=== PATIENT | female | born 1935 | race Caucasian/White ===

== ENCOUNTER 2022-01-03 16:22 | Emergency (ER) | payer OTHER ==
[2022-01-03 16:30] VITALS: BP 152/76; PULSE 83; RESP 18; TEMP 98.7; BMI 30.1
[2022-01-03 17:29] LABS: EPI CELLS 6 /uL (0-25.1); HYALINE CASTS 0 /uL (0-3.1); PH,URINE 5.5 (5.0-8.0); URINE APPEARANCE CLEAR; URINE BACTERIA 10 /uL (0-1359); URINE BILIRUBIN NEGATIVE (NEGATIVE); URINE COLOR YELLOW; URINE GLUCOSE (UA) NEGATIVE (NEGATIVE); URINE KETONE NEGATIVE (NEGATIVE); URINE LEUK ESTERASE 1+ (NEGATIVE); URINE NITRITE NEGATIVE (NEGATIVE); URINE PROTEIN NEGATIVE (NEGATIVE); URINE RBC 3 /uL (0-23.9); URINE UROBILINOGEN 0.2 mg/dL (0.2-1.0); URINE WBC 28 /uL (0-25.8)
[2022-01-03] MEDS ORDERED: ACETAMINOPHEN 1000 MG/100 ML BAG IVPB ONE (17:29)
[2022-01-03 17:34] LABS: EOS % 1.8 % (0-4.5); HEMATOCRIT 36.4 % (32.4-45.2); HEMOGLOBIN 12.5 GM/dL (10.7-15.3); LYMPH % 20.1 % (8-40); MCH 30.9 pg (25.7-33.7); MCHC 34.3 g/dl (32.0-36.0); MEAN CELL VOLUME 90.2 fl (80-96); MEAN PLT VOLUME 8.2 fl (7.5-11.1); NEUT % 69.1 % (42.8-82.8); PLATELET COUNT 274 10^3/uL (134-434); RBC 4.03 M/mm3 (3.60-5.2); RDW 12.9 % (11.6-15.6); WHITE BLOOD COUNT 8.6 K/mm3 (4.0-10.0)
[2022-01-03] MEDS ORDERED: ACETAMINOPHEN INJECTION 100 ML IVPB ONE (17:45)
[2022-01-03 17:52] LABS: ALBUMIN 3.7 g/dl (3.4-5.0); CALCIUM 8.8 mg/dL (8.5-10.1); MAGNESIUM 2.1 mg/dL (1.8-2.4)
[2022-01-03 17:55] LABS: CREATININE 0.8 mg/dL (0.55-1.3); PHOSPHOROUS 4.2 mg/dL (2.5-4.9)
[2022-01-03 17:57] LABS: BILIRUBIN,TOTAL 0.4 mg/dL (0.2-1); TOT PROT 7.3 g/dl (6.4-8.2)
[2022-01-03] MEDS ORDERED: LIDOCAINE 5% TOPICAL PATCH TP ONE (19:37)
[2022-01-03] MEDS ORDERED: LIDOCAINE 5% TOPICAL PATCH ONE (20:04)
[2022-01-03] MEDS ORDERED: LIDOCAINE PATCH REMOVAL MC SCH (22:00)
== END 2022-01-03 20:15 | disposition home or self-care (01) ==
LOC: JER 16:22
PROC: 3E0333Z Introduction of Anti-inflammatory into Peripheral Vein, Percutaneous Approach (ICD-10-PCS; principal; 2022-01-03)
DX: M54.50 Low back pain, unspecified (principal)
CPT/HCPCS: 36415; 74176-TC; 80053; 81003; 83690; 83735; 84100; 85025; 87086; 99284-25

== ENCOUNTER 2025-01-07 11:34 | Emergency (ER) | payer MEDICARE, OTHER ==
[2025-01-07 12:07] VITALS: RESP 18; BMI 28.8
[2025-01-07] MEDS ORDERED: ONDANSETRON 4 MG/2 ML VIAL ONE (12:50)
[2025-01-07] MEDS ORDERED: ACETAMINOPHEN INJECTION 100 ML ONE (12:50)
[2025-01-07] MEDS ORDERED: MAG HYDROX/AL HYDROX/SIMETH 30 ML UNIT-DOSE CUP ONE (12:50)
[2025-01-07] MEDS ORDERED: FAMOTIDINE 20 MG/50 ML IVPB 20 MG/50 ML MG IVPB ONE (12:50)
[2025-01-07 12:56] LABS: ABSOLUTE IMMATURE GRANULOCYTES 0.07 x10^3/uL (0.0-0.031); BASOPHILS # 0.05 x10^3/uL (0.01-0.08); EOSINOPHIL % 0.2 % (0.7-5.8); EOSINOPHILS # 0.03 x10^3/uL (0.04-0.36); MCHC 32.6 g/dl (32.2-35.5); MEAN CELL VOLUME 95.7 fl (79.4-94.8); MEAN PLT VOLUME 10.0 fl (9.4-12.3); MONOCYTE # 0.98 x10^3/uL (0.24-0.86); MONOCYTE % 6.4 % (4.7-12.5); RDW 12.4 % (12.5-17.0)
[2025-01-07 13:04] LABS: INR 1.17 (0.83-1.09); PROTHROMBIN TIME (PATIENT) 12.7 SEC (9.7-13.0)
[2025-01-07 13:06] LABS: ACTIVATED PTT 27.2 SECONDS (25.2-36.5)
[2025-01-07] MEDS: ONDANSETRON 4 MG/2 ML VIAL IVPUSH ONE (13:06)
[2025-01-07] MEDS: MAG HYDROX/AL HYDROX/SIMETH 30 ML UNIT-DOSE CUP PO ONE (13:06)
[2025-01-07] MEDS: ACETAMINOPHEN 1000 MG/100 ML BAG IVPB ONE (13:06)
[2025-01-07] MEDS: SODIUM CHLORIDE 0.9% 500 ML INFUS.BAG IV ONE (13:06)
[2025-01-07] MEDS: FAMOTIDINE 20 MG/50 ML IVPB 20 MG/50 ML MG IVPB ONE (13:06)
[2025-01-07 13:42] LABS: CO2 29.0 mmol/L (21-32); GLUCOSE,RANDOM 126.0 mg/dL (74-106)
[2025-01-07 13:45] LABS: CREATININE 0.91 mg/dL (0.55-1.3); SGOT/AST 303.0 U/L (15-37); SGPT/ALT 136.0 U/L (13-61)
[2025-01-07 13:47] LABS: TOT PROT 8.8 g/dl (6.4-8.2)
[2025-01-07 13:49] LABS: ALK PHOS 163.0 U/L (45-117)
[2025-01-07 16:35] LABS: HIV INTERPRETATION NEGATIVE (NEGATIVE)
[2025-01-07 16:43] LABS: HCV DIAGNOSTIC IN-HOUSE W/RFLX NON-REACTIVE (NONREACTIVE)
[2025-01-07 18:19] VITALS: BP 137/70; PULSE 72; TEMP 98.1
== END 2025-01-07 19:13 | disposition home or self-care (01) ==
LOC: JER 11:34
PROC: 3E033GC Introduction of Other Therapeutic Substance into Peripheral Vein, Percutaneous Approach (ICD-10-PCS; principal; 2025-01-07)
PROC: 3E033GC Introduction of Other Therapeutic Substance into Peripheral Vein, Percutaneous Approach (ICD-10-PCS; 2025-01-07)
PROC: 3E033GC Introduction of Other Therapeutic Substance into Peripheral Vein, Percutaneous Approach (ICD-10-PCS; 2025-01-07)
DX: R10.13 Epigastric pain (principal); R61 Generalized hyperhidrosis; R11.2 Nausea with vomiting, unspecified
CPT/HCPCS: 36415; 71045-TC-FY; 74177-TC; 80053; 83605; 83690; 83735; 84484; 85025; 85610; 85730; 86803; 87389; 99285-25; Q9967